=== PATIENT | male | born 1965 | race Caucasian/White ===

== ENCOUNTER 2020-07-25 11:45 | Outpatient (NON) | payer OTHER, SELFPAY ==
[2020-07-25 23:03] LABS: SARS-CoV-2 RNA PCR Positive
== END 2020-07-25 11:46 ==
LOC: ANHCOVIDDT 11:47
PROVIDERS: Visit Provider Physician Assistant
DX: U07.1 COVID-19 (principal); R68.89 Other general symptoms and signs
CPT/HCPCS: 87635; C9803; U0003

== ENCOUNTER 2022-05-07 15:18 | Outpatient (CLI) | payer OTHER, SELFPAY ==
--- NOTE | 2022-05-07 15:33 | ECG_ITS ---
Measurements Intervals [place] Rate: 57 P: 72 TX: 174 QRS: 9 QRSD: 97 T: 23 QT: 394 QTc: 384 Interpretive Statements SINUS BRADYCARDIA NO PREVIOUS ECG AVAILABLE FOR COMPARISON Electronically Signed On 05-08-2022 14:46:00 CDT by Eunice Barry M.D.
== END 2022-05-07 15:19 | disposition home or self-care (01) ==
PROVIDERS: PCP Internal Medicine; Visit Provider Podiatrist Foot & Ankle Surgery
DX: Z01.810 Encounter for preprocedural cardiovascular examination (principal); F17.210 Nicotine dependence, cigarettes, uncomplicated; R00.1 Bradycardia, unspecified
CPT/HCPCS: 93005

== ENCOUNTER 2022-05-10 01:51 | Day surgery (SDC) | payer OTHER, SELFPAY ==
[2022-04-30 09:51] VITALS: BMI 25.2
--- NOTE | 2022-04-30 09:58 | PC.NURSE ---
Report to the Outpatient Waiting Room, entrance under the green pavilion located off [facility], at time 0630 on date _05/10/22__. OR Time: _0830_. Time changes happen often and if your time is changed the preop area will call you the afternoon before. - You and your visitor will be asked to self-screen and do not enter if you have any COVID symptoms. - Only one visitor and NO children visitors are allowed at this time. - The patient visitor is requested to leave or wait in car when not with patient due to restrictions. - A mask is required within the hospital. Patients may have clear liquids (water, carbonated beverages, clear teas, apple juice) until 3 hours prior to surgery with a maximum of 20 ounces. - No food from midnight until time of surgery - Infants may have breast milk until 4 hours before surgery, infant formula 6 hours prior to surgery. - Children will be allowed to drink immediately following surgery. If applicable, please bring a bottle or sippy cup to assist with drinking. Juice, water, soda, and popsicles are readily available. For infants on formula, please bring formula the day of surgery. Pacifiers are allowed. Take the following medications with a SIP of water the morning of surgery: ___NONE Medications to discontinue per physician MULTIVAMIN Date to take last dose_05/07/22 Please no make-up, nail lithuanian, hairspray, perfume, deodorant, or body powder the day of surgery. No jewelry (including any body piercings) or valuables the day of surgery, leave them at home. Please take a shower or bath the night before, or the morning of, surgery with an antibacterial soap. Wear comfortable, loose fitting clothing. Children are encouraged to wear pajamas. - Jewelry must be removed prior to entering the operating room. Rings and piercings that are not removed may be cut off. - The hospital will not accept responsibility for valuables. - Please leave all valuables, including medications, at home the day of surgery. If you are going home after surgery, a licensed bull driver must drive you home. - NO public transportation without another adult. - We recommend that an adult stay with you for 24 hours following discharge. - We also recommend that you do not drive, make important decision, drink alcoholic beverages, or take any drugs that were not prescribed by your health care provider for at least 24 hours after your discharge time. For Pediatric surgeries, we recommend two adults accompany the child home (only one inside the building at this time). Follow any additional instructions given to you from your surgeon. If you or anyone in your household have experienced Covid symptoms in the past week, please notify your surgeon or the nurse liaison at the phone number below for possible testing. Telephone instructions given to PATIENT_and asked if any additional questions and then verbalized understanding. Patient advised to call surgeon office or pre surgery nurse liaison [phone] if any additional questions.
--- NOTE | ~2022-05-10 | XR_ITS ---
EXAMINATION: XR surgery orthopedic DATE: 05/10/2022 09:36 INDICATION: Left foot arthrodesis TECHNIQUE: 2 fluoroscopic spot images of the left forefoot were obtained in dorsal plantar and latera l projections during procedure performed by Dr. Alfred. Radiologist was not present for the imaging or procedure. The amount of fluoroscopy time used during this procedure was 0.2 minutes. COMPARISON: None. FINDINGS: First metatarsophalangeal arthrodesis with dorsal plate and screw fixation. Alignment appears near-an atomic. Expected small amount of soft tissue gas the operative bed. Prominent soft tissue swelling me dial to the head of the first metatarsal. No fracture. Remaining metatarsophalangeal and interphalang eal joint spaces appear normal. IMPRESSION: 1. Expected appearance post first metatarsophalangeal arthrodesis with dorsal plate and screw fixatio n. Reviewed, dictated and finalized at location B. IMPRESSION: 1. Expected appearance post first metatarsophalangeal arthrodesis with dorsal p late and screw fixation.
[2022-05-10] MEDS: LACTATED RINGERS 1,000 ML 30 ML IV CONT ×2 (06:53→09:47)
[2022-05-10 07:04] VITALS: BP 118/67; PULSE 60; RESP 16; TEMP 36.6; O2SAT 97
--- NOTE | 2022-05-10 07:19 | WPDHPUPDATE1 ---
History and Physical Update Update Date/Time: 05/10/22 07:19 History and Physical has been reviewed, including an updated exam of the patient. There are NO changes in the patient's condition. Risks, benefits, and alternatives have been discussed and questions answered. Patient agrees to proceed with procedure.
--- NOTE | 2022-05-10 07:46 | P.PNAN_ITS ---
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 Patient Data Age: 56 Gender: M Height: 1.78 m Weight: 78.2 kg Last Vital Signs Temp 36.6 C 05/10/22 07:04 Pulse 60 05/10/22 07:04 Resp 16 05/10/22 07:04 BP 118/67 05/10/22 07:04 Pulse Ox 97 05/10/22 07:04 O2 Del Method Room Air 05/10/22 07:04 Allergies Allergy/AdvReac Type Severity Reaction Status Date / Time No Known Allergies Allergy Verified 04/30/22 09:50 Home Medications Medication Instructions Recorded Confirmed Type multivit with minerals-iron 18 1 tablet PO 04/30/22 History mg-folic ac 400 mcg-vit K 25 mcg tablet (Adults Multivitamin) Patient hx anesthesia problems: none Family hx anesthesia problems: none Results Review: All pre-operative results and documents have been reviewed as part of the pre- operative evaluation. [facility] Past Medical History Medical History COVID-19 Smoker Surgical History Surgical History History of shoulder surgery Family History Family History Mother Patient's mother is in good health Father Patient's father is Social History Social History Smoking packs per day: 0.5 Smoking cigarettes per day: 10.0 Years smoked: 30 Smoking pack-years: 15.00 Smoking status: Current some day smoker Tobacco type: cigarettes Second hand tobacco smoke exposure: No Alcohol intake: current Drinks per week: 6 Substance use: current Substance use type: marijuana Other substance usage details: 7 DAYS PER MONTH Living arrangements: alone Anes - Eval Final PreProcedure Day of Procedure 05/10/22 07:46 Patient weight: normal Heart: regular rate and rhythm Lungs: clear to auscultation Airway: Mallampati scale class II Last oral intake: >/= 8 hours ASA classification: III Emergent: no Anesthetic plan: proceed Anesthesia type and monitoring: general LMA and standard monitoring Results Review: All pre-operative results and documents have been reviewed as part of the pre- operative evaluation. Informed Consent: The patient's anesthetic plan and its attendant risks and benefits were discussed with the patient/family/POA. Questions were solicited and answers provided to the satisfaction of the patient/family/POA.
--- NOTE | 2022-05-10 08:05 | WPDANESPNB ---
Anes - Peripheral Nerve Block Date/Time: 05/10/22 08:05 I have discussed with the patient/family/POA the placement of a peripheral nerve block for post-operative pain management, including associated risks, benefits, complications, and side effects. Alternative methods of post-operative analgesia were detailed. Questions were solicited and answers provided to the satisfaction of the patient/family/POA. Time-Out: A pre-procedural Time-Out was completed immediately before starting the procedure and confirmed: Patient Identification, Site, Procedure, Patient Position and the Availability of Requisite Equipment. Clinical Indications: Acute post-operative pain management requested by the operative surgeon. Nerve Block Insertion Note Anes-nerve block: posterior fossa sciatic left and other (saphenous) Patient position: supine Skin prep: chlorhexidine Needle: 22 gauge, stimulating, insulated echogenic needle. Needle length: 80 mm Technique: nerve stimulation lost at (mA) (0.3) Injectate: bupivacaine 0.5% with epi 5 mcg/ml (no epi,30cc popliteal, 10cc saphenous) Observations: tolerated well Complications: none Procedure start time:: 800 Procedure end time:: 807
[2022-05-10] MEDS: ceFAZolin 2 GM/D5W 50 ML 2 GM/50 ML BAG IVPB (08:32)
[2022-05-10 09:47] VITALS: PULSE 64; RESP 18; TEMP 36.1; O2SAT 100
--- NOTE | 2022-05-10 09:53 | W.PM.PROC2 ---
Procedure Note - Detailed Date of Procedure 05/10/22 Pre-op Diagnosis Arthritic Bunion Left Foot Post-op Diagnosis Same Procedure Performed Arthrodesis of the first metatarsal phalangeal joint left foot Surgeon Beau Alfred JR, DPAvery Indications Promienent painful first metatarsal phalangeal joint Description of Procedure PROCEDURE IN DETAIL: Under mild sedation, the patient was brought into the operating room, placed on the operating table in supine position. A pneumatic ankle tourniquet was placed about the patient's ipsilateral ankle. Following general LMA, and a regional popliteal fossa block, the foot was then scrubbed, prepped, and draped in the usual aseptic manner. An Esmarch bandage was then used to exsanguinate the patient's foot and the pneumatic ankle tourniquet was then inflated. Surgery began in the following manner: Attention was directed to the dorsal aspect of the 1st metatarsophalangeal joint where there was a large subcutaneous prominence noted along the dorsomedial aspect of the joint. The incision was made starting along the central shaft of the 1st metatarsal and extending just proximal to the interphalangeal joint of the hallux. The incision was continued deep down through the subcutaneous tissues using sharp and blunt dissection. All bleeders were cauterized as necessary. At this point, the dissection was continued down to the level of the periosteum and capsular structures overlying the 1st metatarsophalangeal joint. A full length periosteum and capsular incision was made just medial to the extensor hallucis longus tendon. The periosteum and capsular structures were freed from the base of the proximal phalanx as well as the distal 1st metatarsal. At this point, the 1st metatarsophalangeal joint was identified. There was significant loss of articular cartilage to the head of the 1st metatarsal as well as the base of the proximal phalanx expecially along the periphery of the joint, with cartilage defects. There was significant broadening and hypertrophy of the 1st metatarsophalangeal joint. Utilizing a sagittal bone saw, the hypertrophied 1st metatarsal was resected dorsally, medially, and laterally. A power bur was used to make sure that there were no rough edges and also to further debride the hypertrophic 1st metatarsal. Next, a rongeur was used to resect all hypertrophic base of the proximal phalanx. At this point, the reamer system for the [employer] CrossCHECK system was used to denude the degenerative cartilage from the head of the 1st metatarsal as well as the base of the proximal phalanx. The cartilage and subchondral bone were fully debrided utilizing the reamer system until healthy bleeding bone was noted. Next, a 2-0 drill bit was used to further fenestrate the head of the 1st metatarsal as well as the base of the proximal phalanx in order to allow fusion across the 1st metatarsophalangeal joint. Next, a 0.045 inch K-wire was driven from the medial aspect of the base of the proximal phalanx into the head of the 1st metatarsal in order to serve as temporary fixation. A large steel plate was used to make sure that the hallux was in a rectus position both in the sagittal plane as well as the frontal and transverse plane. Excellent position of the hallux was noted. Next, a CrossCHECK plate was placed atop the 1st metatarsophalangeal joint held in position with George wires. Utilizing standard principles and techniques, the 2 distal drill holes were drilled and one 3.5mm and one 2.7mm mm fully-threaded locking screws were driven from dorsal to plantar holding the distal aspect of the plate intact. At this point, a 3.5mm lag screw was driven from dorsal distal to proximal plantar across the 1st metatarsophalangeal joint through the plate system with excellent compression noted after careful removal of the olive wire and temporary fixation from the 1st metatarsophalangeal joint. Next, 2 proximal
[2022-05-10 10:00] VITALS: BP 126/73; PULSE 62; RESP 20; O2SAT 97
[2022-05-10 10:15] VITALS: BP 126/73; PULSE 50; RESP 20; O2SAT 100
[2022-05-10 10:25] VITALS: BP 134/74; PULSE 50; RESP 20
== END 2022-05-10 10:55 | disposition home or self-care (01) ==
PROVIDERS: PCP Internal Medicine; Visit Provider Podiatrist Foot & Ankle Surgery
PROC: (CPT 28750; principal; 2022-05-10 08:30)
DX: M21.612 Bunion of left foot (principal); G89.18 Other acute postprocedural pain; F17.210 Nicotine dependence, cigarettes, uncomplicated; F12.90 Cannabis use, unspecified, uncomplicated
CPT/HCPCS: 28750; 64450; 64445; 93005; 99199; C1713; J0690; J1100; J2250; J2405; J2704; J7120

== ENCOUNTER 2022-07-12 10:05 | Outpatient (CLI) | payer OTHER, SELFPAY ==
[2022-07-12 11:13] LABS: Influenza A QL RT-PCR Negative (Negative); Influenza B QL RT-PCR Negative (Negative); SARS-CoV-2 RNA PCR Negative (Negative)
== END 2022-07-12 10:06 | disposition home or self-care (01) ==
LOC: CHSLAB 10:07
PROVIDERS: PCP Internal Medicine; Visit Provider Internal Medicine
DX: R50.9 Fever, unspecified (principal); Z20.822 Contact with and (suspected) exposure to COVID-19
CPT/HCPCS: 87636

== ENCOUNTER 2022-08-02 15:45 | Outpatient (CLI) | payer OTHER, SELFPAY ==
--- NOTE | ~2022-08-02 | CT_ITS ---
EXAMINATION: CT lung screening DATE: 08/02/2022 16:06 INDICATION: Personal history of nicotine dependence TECHNIQUE: Computed tomography (CT) of the chest was performed without intravenous contrast. The dose -length product was 98.72 mGy-cm. Automated exposure control and iterative reconstruction technique w ere employed. COMPARISON: No prior studies for comparison. FINDINGS: Heart size normal. No significant pleural or pericardial effusion. No thoracic lymphadenopa thy. Severe emphysema. There are 5 mm right upper lobe nodules, image 27. There is apical pleural thi ckening/scarring. There is a 2 mm nodule in the left lower lobe. No pneumothorax. No focal airspace c onsolidation. No endobronchial lesions. Mild thoracic spondylosis. No focal lytic or blastic lesions. IMPRESSION: 1. Lung-RADS category 2: Benign appearance or behavior. Continue annual screening with noncontrast lo w-dose chest CT in 12 months. Reviewed, dictated and finalized at location A. [employer] IMPRESSION: 1. Lung-RADS category 2: Benign appearance or behavior. Continue annual screeni ng with noncontrast low-dose chest CT in 12 months.
== END 2022-08-02 15:46 | disposition home or self-care (01) ==
PROVIDERS: PCP Internal Medicine; Visit Provider Internal Medicine
DX: Z12.2 Encounter for screening for malignant neoplasm of respiratory organs (principal); F17.210 Nicotine dependence, cigarettes, uncomplicated
CPT/HCPCS: 71271

== ENCOUNTER 2023-12-09 00:50 | Day surgery (SDC) | payer OTHER, SELFPAY ==
[2023-11-24 13:45] VITALS: BMI 25.9
[2023-12-09 09:22] VITALS: BP 120/84; PULSE 62; RESP 18; TEMP 36.2; O2SAT 99
[2023-12-09] MEDS: LACTATED RINGERS 1,000 ML 150 ML IV CONT (09:27)
--- NOTE | 2023-12-09 10:37 | WPDANESEPPF ---
Anes - Initial Pre Proc Eval Procedure: Operation Date: 12/09/23 10:30 Proposed Procedures p Screening Colonoscopy - Jadiel Dominguez DO Date/Time: 12/09/23 10:37 Surgeon: Jadiel Dominguez DO Pre Op Diagnosis: Screening for malignant neoplasm of colon Patient Data Age: 57 Gender: M Height: 1.78 m Weight: 79.3 kg Last Vital Signs Temp 97.1 F L 12/09/23 09:22 Pulse 62 12/09/23 09:22 Resp 18 12/09/23 09:22 BP 120/84 12/09/23 09:22 Pulse Ox 99 12/09/23 09:22 O2 Del Method Room Air 12/09/23 09:22 Allergies Allergy/AdvReac Type Severity Reaction Status Date / Time No Known Allergies Allergy Verified 12/09/23 09:21 Home Medications Medication Instructions Recorded Confirmed Type multivit with minerals-iron 18 1 tablet PO DAILY 04/30/22 12/09/23 History mg-folic ac 400 mcg-vit K 25 mcg tablet (Adults Multivitamin) mupirocin 2 % topical ointment 1 applic topical TID #22 grams 11/04/23 12/09/23 Rx Patient hx anesthesia problems: none Family hx anesthesia problems: none Results Review: All pre-operative results and documents have been reviewed as part of the pre-operative evaluation. COUNTS INCLUDE 234 BEDS AT THE [facility] Past Medical History Medical History COVID-19 Smoker Surgical History Surgical History History of shoulder surgery Family History Family History Mother Patient's mother is in good health Father Patient's father is Social History Social History Smoking packs per day: 0.5 Smoking cigarettes per day: 10.0 Years smoked: 30 Smoking pack-years: 15.00 Smoking status: Current every day smoker Tobacco type: cigarettes Second hand tobacco smoke exposure: No Alcohol intake: current Drinks per week: 6 Alcohol use details: twice a month Substance use: current Substance use type: marijuana Other substance usage details: 3 nights a week Lack of Transportation: No Lack of Food: Never True Current Housing: I Have Housing Concerned About Future Housing: No Difficulty Paying Gas/Electric Bills: No Difficulty Paying for Meds: No Currently Unemployed: No Education: Trade/Vocational Certificate Difficulty w/ Childcare or Family Care: No Living arrangements: alone Spiritual care concerns: No Anes - Eval Final PreProcedure Day of Procedure 12/09/23 10:37 Patient weight: normal Heart: regular rate and rhythm Lungs: clear to auscultation Airway: Mallampati scale class II Neurological: alert and oriented Last oral intake: >/= 8 hours ASA classification: II Emergent: no Anesthetic plan: proceed Anesthesia type and monitoring: general GIVS and standard monitoring Results Review: All pre-operative results and documents have been reviewed as part of the pre-operative evaluation. Informed Consent: The patient's anesthetic plan and its attendant risks and benefits were discussed with the patient/family/POA. Questions were solicited and answers provided to the satisfaction of the patient/family/POA.
--- NOTE | 2023-12-09 11:14 | PM.IMHP ---
H&P: HPI History of Present Illness Date/Time: 12/09/23 11:14 Chief Complaint: Screening for colorectal cancer Narrative: This is a 57 year man who presents for his 1st colonoscopy. He denies any hematochezia or melena. He denies family history of colon cancer. Review of Systems Review of Systems: All systems reviewed & are unremarkable except as noted in HPI and below Constitutional: Constitutional: Denies chills, Denies fever(s), Denies headache(s) and Denies weight loss Eyes: Eyes: Denies change in vision ENT: Denies dizziness, Denies headache(s), Denies neck mass and Denies throat swelling Cardiovascular: Cardiovascular: Denies chest pain, Denies lightheadedness and Denies dyspnea Respiratory: Respiratory: Denies cough, Denies dyspnea and Denies wheezing Gastrointestinal: Gastrointestinal: Denies abdominal pain, Denies change in bowel habits, Denies nausea and Denies vomiting Genitourinary: Genitourinary: Denies hematuria and Denies dysuria Musculoskeletal: Musculoskeletal: Reports as per HPI Integumentary/Breasts: Skin/Breast: Reports as per HPI Neurologic: Denies dizziness and Denies headache(s) Allergic/Immunologic: Allergic/Immunologic: Denies throat swelling and Denies wheezing PMFSH Past Medical History Medical History COVID-19 Smoker Surgical History Surgical History History of shoulder surgery Family History Family History Mother Patient's mother is in good health Father Patient's father is Social History Social History Smoking packs per day: 0.5 Smoking cigarettes per day: 10.0 Years smoked: 30 Smoking pack-years: 15.00 Smoking status: Current every day smoker Tobacco type: cigarettes Second hand tobacco smoke exposure: No Alcohol intake: current Drinks per week: 6 Alcohol use details: twice a month Substance use: current Substance use type: marijuana Other substance usage details: 3 nights a week Lack of Transportation: No Lack of Food: Never True Current Housing: I Have Housing Concerned About Future Housing: No Difficulty Paying Gas/Electric Bills: No Difficulty Paying for Meds: No Currently Unemployed: No Education: Trade/Vocational Certificate Difficulty w/ Childcare or Family Care: No Living arrangements: alone Spiritual care concerns: No Meds Home Medications and Allergies Home Medications Medication Instructions Recorded Confirmed Type multivit with minerals-iron 18 1 tablet PO DAILY 04/30/22 12/09/23 History mg-folic ac 400 mcg-vit K 25 mcg tablet (Adults Multivitamin) mupirocin 2 % topical ointment 1 applic topical TID #22 grams 11/04/23 12/09/23 Rx Allergies Allergy/AdvReac Type Severity Reaction Status Date / Time No Known Allergies Allergy Verified 12/09/23 09:21 Vital Signs Vital Signs - 24 hr 12/09/23 09:22 Temperature 36.2 C L Pulse Rate 62 Respiratory Rate 18 Blood Pressure 120/84 Pulse Oximetry 99 Oxygen Delivery Room Air Exam Const: General: no acute distress and alert Orientation/consciousness: patient oriented x3 HENMT: Head: normocephalic and atraumatic Ears: hearing grossly normal bilaterally Face/Nose/Sinus: Normal nares present Mouth: Yes Normal oral and palatal mucosa present Eyes: Periorbital: periorbital findings normal Sclera: sclerae normal EOM: EOMs intact bilaterally Neck: Neck: normal visual inspection, no lymphadenopathy and trachea midline Chest: Chest palpation & inspection: normal inspection of the chest Resp: Effort & Inspection: normal respiratory effort Auscultation: clear to auscultation bilaterally Cardio: Jugular venous distension: no JVD Rate: regular rate Rhythm: regular rhythm Heart sounds: S1 normal heart sound present and S2 normal hea
[2023-12-09 11:53] VITALS: BP 108/78; PULSE 57; RESP 19; O2SAT 99
[2023-12-09 12:03] VITALS: BP 120/66; PULSE 58; RESP 20; O2SAT 100
[2023-12-09 12:13] VITALS: BP 125/81; PULSE 55; RESP 16; O2SAT 99
== END 2023-12-09 12:15 | disposition home or self-care (01) ==
PROVIDERS: PCP Internal Medicine; Visit Provider Surgery
PROC: 0DJD8ZZ Inspection of Lower Intestinal Tract, Via Natural or Artificial Opening Endoscopic (ICD-10-PCS; CPT 45378; principal; 2023-12-09 10:30)
DX: Z12.11 Encounter for screening for malignant neoplasm of colon (principal); K63.5 Polyp of colon; K57.30 Diverticulosis of large intestine without perforation or abscess without bleeding; F17.210 Nicotine dependence, cigarettes, uncomplicated; F12.90 Cannabis use, unspecified, uncomplicated; Z98.890 Other specified postprocedural states
CPT/HCPCS: 45385; 88305; J2704; J7120

== ENCOUNTER 2025-03-13 05:31 | Emergency (ER) | payer OTHER, SELFPAY ==
[2025-03-13 05:31] VITALS: BP 121/97; PULSE 62; RESP 18; TEMP 36.3; O2SAT 97
--- NOTE | 2025-03-13 05:33 | ED.ALLEREA ---
HPI - Allergic Reaction General Chief complaint: Allergic Reaction Stated complaint: stung by something Time Seen by Provider: 03/13/25 05:33 Source: patient Mode of arrival: ambulatory Limitations: no limitations History of Present Illness HPI narrative: Patient is a 59-year-old male with a facial swelling after a bee sting yesterday to his tip of his nose. He has been stung in the ear and other places in the past few weeks over the summer. No oral airway or tongue swelling. No difficulty breathing or shortness of breath. No wheezing. MD complaint: allergic reaction and facial swelling Onset (ago): day(s) ( Two) Exposure: insect bite Symptoms: facial swelling Severity: mild Treatment prior to arrival: none Previous Allergic Reaction History: none Related Data Home Medications ?Medication ?Instructions ?Recorded ?Confirmed ?Last Taken ?Type multivit with minerals-iron 18 1 tablet PO DAILY 04/30/22 12/09/23 05/06/22 History mg-folic ac 400 mcg-vit K 25 mcg tablet (Adults Multivitamin) Allergies Allergy/AdvReac Type Severity Reaction Status Date / Time No Known Allergies Allergy Verified 03/13/25 05:32 Review of Systems Review of Systems: All systems reviewed & are unremarkable except as noted in HPI and below Constitutional: Constitutional: Reports no additional constitutional complaints Eyes: Eyes: Reports no additional eye complaints ENT: Reports system reviewed and no additional complaints, except as documented Cardiovascular: Cardiovascular: Reports no additional cardiovascular complaints Respiratory: Respiratory: Reports no additional respiratory complaints Gastrointestinal: Gastrointestinal: Reports no additional gastrointestinal complaints Genitourinary: Genitourinary: Reports no additional male genitourinary complaints Musculoskeletal: Musculoskeletal: Reports no additional musculoskeletal complaints Integumentary/Breasts: Skin/Breast: Reports system reviewed and no additional complaints, except as docu Neurologic: Reports system reviewed and no additional complaints, except as documented Psychiatric: Psychiatric: Reports no additional psychiatric complaints Endocrine: Endocrine: Reports no additional endocrine complaints Hematologic/Lymphatic: Hematologic/Lymphatic: Reports no additional hematologic/lymphatic complaints Allergic/Immunologic: Allergic/Immunologic: Reports no additional allergic/immunologic complaints PMFSH Past Medical History Medical History Smoker COVID-19 Surgical History Surgical History History of shoulder surgery Family History Family History Mother Patient's mother is in good health Father Patient's father is Social History Social History Smoking packs per day: 0.5 Smoking cigarettes per day: 10.0 Years smoked: 30 Smoking pack-years: 15.00 Smoking status: Current every day smoker Tobacco type: cigarettes Second hand tobacco smoke exposure: No Alcohol intake: current Drinks per week: 6 Alcohol use details: twice a month Substance use: current Substance use type: marijuana Other substance usage details: 3 nights a week Lack of Transportation: No Lack of Food: Never True Current Housing: I Have Housing Concerned About Future Housing: No Difficulty Paying Gas/Electric Bills: No Difficulty Paying for Meds: No Currently Unemployed: No Education: Trade/Vocational Certificate Difficulty w/ Childcare or Family Care: No Living arrangements: alone Spiritual care concerns: No Exam Const: General: healthy appearing Nutritional Appearance: well nourished Orientation/consciousness: patient oriented x3 HENMT: Head: normal to inspection Ears: external ears normal Face/Nose/Sinus: Normal external nose present Eyes: Conjunctivae: conjunctivae normal Pupils: Equal, round and reactive pupils present EOM: EOMs intact bilaterally Neck: Neck: normal visual inspection Chest: Chest palpation & inspection: normal inspection of the chest Resp: Effort & Inspection: normal respiratory effort and not labored Auscultation: clear to auscultation bilaterally, no crackles and no wheezes Cardio: Rate: regular rate Rhythm: regular rhythm Heart sounds: no murmurs GI: Inspection: non-distended GI Palp: Yes Soft to palpation and No Tenderness to palpation present (GI) Auscultation: normal bowel sounds : General: Yes bladder normal to palpation Back/Spine/Pelvis: Back: no CVA tenderness Skin: General skin exam: normal color Rashes: no rashes Wounds: no wounds Other: bridge to tip of nose has a small nidus of insect bite with localized erythema of injection and not cellulitis; bilateral elizabeth orbital swelling and puffiness more so on the left than the right; no oral or airway compromise Neuro: General: patient oriented x3, moves all extremities and no meningeal signs Extrem: General: normal to inspection and no clubbing, cyanosis or edema Psych: Mental Status: mental status grossly normal Affect: normal affect Course Vital Signs Vital signs: Vital Signs Temperature 36.3 C L 03/13/25 05:31 Pulse Rate 62 03/13/25 05:31 Respiratory Rate 18 03/13/25 05:31 Blood Pressure 121/97 H 03/13/25 05:31 Pulse Oximetry 97 03/13/25 05:31 Oxygen Delivery Room Air 03/13/25 05:31 Temperature 36.3 C L 03/13/25 05:31 Pulse Rate 62 03/13/25 05:31 Respiratory Rate 18 03/13/25 05:31 Blood Pressure 121/97 H 03/13/25 05:31 Pulse Oximetry 97 03/13/25 05:31 Oxygen Delivery Room Air 03/13/25 05:31 MDM - Allergic Reaction MDM Narrative Medical decision making narrative: patient is a 59-year-old male with allergic reaction and puffiness around the eyes from a bee sting yesterday. We will do Benadryl and steroids. Patient declined needing EpiPen prescription. Discharge Plan Discharge Clinical Impression: Allergic reaction Qualifiers: Encounter type: initial encounter Qualified Code(s): T78.40XA - Allergy, unspecified, initial encounter Patient Disposition: Home Condition: Stable Instructions: Antibiotic Form Additional Instructions: please take Benadryl 25 mg every 8 hours as needed for continued allergic reaction but do not drive on this medication. Patient Language: [place] Zealander Prescriptions: New prednisone 20 mg tablet 40 mg PO DAILY 3 Days Qty: 6 0RF No Action Adults Multivitamin 18 mg iron-400 mcg-25 mcg Tablet 1 tablet PO DAILY triamcinolone acetonide 0.1 % cream 1 applic topical BID Qty: 30 0RF Follow-up/Referrals: Jack Pollack MD [Primary Care Provider] - Time of Disposition: 05:46
[2025-03-13] MEDS: diphenhydrAMINE HCl CAP 25 MG CAPSULE PO (05:43)
== END 2025-03-13 05:56 | disposition home or self-care (01) ==
PROVIDERS: Emergency Provider Emergency Medicine; PCP Internal Medicine
DX: T63.441A Toxic effect of venom of bees, accidental (unintentional), initial encounter (principal); F17.210 Nicotine dependence, cigarettes, uncomplicated
CPT/HCPCS: 99283; A9270; J7512

== ENCOUNTER 2025-03-25 15:48 | Outpatient (CLI) | payer OTHER, SELFPAY ==
--- NOTE | ~2025-03-25 | XR_ITS ---
EXAM/ PROCEDURE: XR knee LT 3V - 03/25/2025 15:55 CDT HISTORY: 59 years old Male with Lt. knee pain/swelling x3 months. NKI COMPARISON: None available TECHNIQUE: Three view(s) FINDINGS/ IMPRESSION: There are no fractures or dislocations.Joint space narrowing, subchondral sclerosis, subchondral cyst formation and osteophyte formation, compatible with mild osteoarthritis. Reviewed, dictated and finalized at location N.
== END 2025-03-25 15:49 | disposition home or self-care (01) ==
PROVIDERS: PCP Internal Medicine; Visit Provider Internal Medicine
DX: M25.562 Pain in left knee (principal)
CPT/HCPCS: 73562

== ENCOUNTER 2025-04-12 16:25 | Outpatient (RCR) | payer OTHER, SELFPAY ==
--- NOTE | 2025-04-12 17:42 | OPREHPOC ---
Outpatient Therapy Plan of Care This is a Multidisciplinary Plan of Care that may contain components documented by all disciplines (PT, OT, and ST.) PT Problem 1 PT Problem #1 Knowledge Deficit PT Goal 1 Goal / Goal Update The patient will be independent in a home exercise program. Target Visit 6 PT Problem 2 PT Problem #2 Impaired Flexibility PT Goal 1 Goal / Goal Update The patient will demonstrate a 10 degree improvement in left quadriceps flexibility. Target Visit 6 PT Problem 3 PT Problem #3 Impaired Functional Mobility PT Goal 1 Goal / Goal Update The patient will demonstrate 5% or less self perceived disability per the LEFS. Target Visit 6
--- NOTE | 2025-04-12 17:42 | PTOPEVAL1 ---
Assessment and note entered by Kelsea Spencer, PT Evaluation Information Assessment Status Evaluation Diagnosis L knee OA ICD-10 Condition Codes (PT) Pain in left knee M25.562 Onset 04/08/25 Subjective Information Lv Lundberg reports his left knee started swelling about 2 months ago for unknown reasons. 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 He went to his doctor and was told he has arthritis. He was prescribed a round of steroids and notes the swelling has come down. He has not had very much pain in the knee and is still active riding his bike and using his home gym 4-5 times a week. He denies pain with stairs and prolonged walking. 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 He has been taking a steroid medication prescribed by his doctor and the swelling has subsided. He presents today with normal left knee AROM and good strength in the left and right knee and hip. He has tenderness in the distal and lateral left quadriceps and ITB and decreased hamstring and quadriceps flexbility. He will benefit from skilled PT to address these limitations and to improve functional abilities. Plan of Care Interventions Electrical Stimulation,Hot Pack/Cold Pack,Manual Therapy,Neuro Re-education,Patient/Caregiver Education,Therapeutic Activities,Therapeutic Exercise PT Services Indicated Yes Treatment Frequency and 2 times a week for 6 visits Duration These treatments will address the objective and functional deficits as defined above. The patient will be advanced safely and appropriately in order for the patient to progress towards his/her prior level of function. Additional exercises will be introduced and as well as a comprehensive home exercise program upon discharge, if needed, ?to ensure carryover of functional gains achieved in the clinic. This treatment plan has been reviewed and agreement upon by the patient.
--- NOTE | 2025-04-28 17:03 | OPREHPOC ---
Outpatient Therapy Plan of Care This is a Multidisciplinary Plan of Care that may contain components documented by all disciplines (PT, OT, and ST.) PT Problem 1 PT Problem #1 Knowledge Deficit PT Goal 1 Goal / Goal Update The patient will be independent in a home exercise program. Target Visit 6 Progress Met PT Problem 2 PT Problem #2 Impaired Flexibility PT Goal 1 Goal / Goal Update The patient will demonstrate a 10 degree improvement in left quadriceps flexibility. Target Visit 6 Progress Met PT Problem 3 PT Problem #3 Impaired Functional Mobility PT Goal 1 Goal / Goal Update The patient will demonstrate 5% or less self perceived disability per the LEFS. Target Visit 6 Progress Met
--- NOTE | 2025-04-28 17:03 | PTOPDC ---
Assessment and note entered by Kelsea Spencer, PT Evaluation Information Assessment Status Discharge Diagnosis L knee OA ICD-10 Condition Codes (PT) Pain in left knee M25.562 Onset 04/08/25 Subjective Information Lv Lundberg reports his left knee is doing great and does not have any pain or swelling anymore. He has returned to deep squatting at work and is able to lift weights and ride his bike several times a week without difficulty. Reported Pain Level Pain Score 0: Self Report Assessment PT Clinical Summary Lv Lundberg has completed 5 skilled PT visits for left knee pain and swelling. He reports no pain, no swelling, and no limitations with work or recreational activities. He demonstrates no swelling in the left knee, normal left knee AROM, improved hamstring and quadriceps flexibility, and full bilateral knee and hip strength. He has met all goals and will be discharged. Plan of Care PT Services Indicated No
== END 2025-04-28 20:00 | disposition home or self-care (01) ==
LOC: CHSPT 16:25
PROVIDERS: PCP Internal Medicine; Visit Provider Internal Medicine
DX: M25.562 Pain in left knee (principal); M25.462 Effusion, left knee; M17.12 Unilateral primary osteoarthritis, left knee
CPT/HCPCS: 97110; 97140; 97161; 97750